=== PATIENT | male | born 1975 | race African-American/Black ===

== ENCOUNTER 2016-10-22 04:45 | Emergency (ER) | payer SELFPAY ==
[~2016-10-22] VITALS: Ht 198.1 cm; Wt 87.0 kg
[2016-10-22 06:04] VITALS: BP 70/55
== END 2016-10-22 07:32 | disposition home or self-care (01) ==
LOC: ER 07:26
DX: M54.9 Dorsalgia, unspecified (principal); G47.00 Insomnia, unspecified; J45.909 Unspecified asthma, uncomplicated; F12.10 Cannabis abuse, uncomplicated
CPT/HCPCS: 99282

== ENCOUNTER 2020-07-04 20:16 | Emergency (ER) | payer MEDICAID ==
[~2020-07-04] VITALS: Ht 200.7 cm; Wt 95.0 kg
[2020-07-04 20:26] VITALS: BP 187/83
[2020-07-04] MEDS ORDERED: ACETAMINOPHEN 325MG TABLET PO ONE (22:15)
[2020-07-04] MEDS ORDERED: IBUP-2029 MT (23:34)
== END 2020-07-05 00:16 | disposition home or self-care (01) ==
LOC: ER 20:16
DX: S62.395A Other fracture of fourth metacarpal bone, left hand, initial encounter for closed fracture (principal); S51.842A Puncture wound with foreign body of left forearm, initial encounter; W25.XXXA Contact with sharp glass, initial encounter; Y93.89 Activity, other specified; Y92.89 Other specified places as the place of occurrence of the external cause
CPT/HCPCS: 29125; 73090; 73130; 99284

== ENCOUNTER 2020-07-15 07:32 | Emergency (ER) | payer MEDICAID ==
[~2020-07-15] VITALS: Ht 200.7 cm; Wt 92.0 kg
[~2020-07-15 07:32] MED LIST: IBUP-2029 MT
[2020-07-15] MEDS ORDERED: LIDOCAINE HCL/EPINEPHRINE 1%-EPI 1:100,000 20 ML VIAL INFIL NR (08:00)
[2020-07-15 09:56] VITALS: BP 142/71
== END 2020-07-15 09:56 | disposition home or self-care (01) ==
LOC: ER 07:32
DX: S62.395A Other fracture of fourth metacarpal bone, left hand, initial encounter for closed fracture (principal); W25.XXXA Contact with sharp glass, initial encounter; Y93.89 Activity, other specified; Y92.89 Other specified places as the place of occurrence of the external cause; Y99.8 Other external cause status; F12.10 Cannabis abuse, uncomplicated; J45.909 Unspecified asthma, uncomplicated
CPT/HCPCS: 10120; 99284; J3490; Z7610